=== PATIENT | female | born 1990 | race Two or more races ===

== ENCOUNTER 2016-08-24 03:27 | Emergency (ER) | payer SELFPAY ==
[2016-08-24 03:48] LABS: URINE BLOOD 3+ (NEGATIVE); URINE GLUCOSE (UA) NEGATIVE (NEGATIVE); URINE LEUKOCYTE ESTERASE 2+ (NEGATIVE); URINE NITRITE POSITIVE (NEGATIVE); URINE PROTEIN 1+ (NEGATIVE)
[2016-08-24 03:50] LABS: HCG,QUALITATIVE URINE NEGATIVE
[2016-08-24 03:51] LABS: URINE APPEARANCE SL CLOUDY; URINE COLOR ORANGE
[2016-08-24 03:55] LABS: URINE WBC >100 /hpf
[2016-08-24 03:56] LABS: URINE BACTERIA 4+; URINE EPITHELIAL CELLS 20-30 /hpf; URINE MUCUS 1+
[2016-08-24] MEDS ORDERED: HYDROCODONE/ACETAMINOPHEN 5/325MG TABLET ONE (04:11)
[2016-08-24] MEDS ORDERED: KETOROLAC TROMETHAMINE 60 MG/2 ML VIAL ONE (04:11)
[2016-08-24] MEDS ORDERED: ONDANSETRON 4 MG ODT TAB ONE (04:11)
[2016-08-24] MEDS ORDERED: CEFTRIAXONE SODIUM 1 G VIAL ONE (04:12)
== END 2016-08-24 04:37 | disposition home or self-care (01) ==
LOC: ED 03:27
DX: N12 Tubulo-interstitial nephritis, not specified as acute or chronic (principal)
CPT/HCPCS: 81025; 81001; 99283 ×2; 96372 ×2; J0696; J1885; A9270 ×2